=== PATIENT | female | born 1975 | race Caucasian/White ===

== ENCOUNTER 2017-11-20 19:33 | Emergency (ER) | payer OTHER ==
[~2017-11-20] VITALS: Ht 162.6 cm; Wt 106.6 kg
[~2017-11-20 19:33] MED LIST: ACETAMINOPHEN-1 EAC1 PO; AMOXICILLIN 50500 MG PO; AUGMENTIN 875875 MG PO; BLOOD PRESSURE MED; CEPHALEXIN 500500 M3 PO; CYCLOBENZAPRINE10 MG PO; DEPAKOTE ER500 MG PO; FLEXERIL PO; HYDROCHLOROTHIA25 M2 PO; HYDROCODON-ACE1 EAC7 PO; HYDROCODON-ACE1 EAC8 PO; IBUPROFEN 400400 M1 PO; IBUPROFEN 800800 MG PO; LEVOTHYROXINE0.2 M1 PO; LISINOPRIL-HCT1 EACH PO; LISINOPRIL40 MG PO; MEDROLDOSEPACK PO; MOBIC7.5 MG PO; NAPROSYN500 MG PO; NORCO 5-325 TA1 EAC1 PO; NORCO 5-325 TA1 EACH PO; NORFLEX100 MG PO; PERCOCET 7.5-31 EACH PO; PROMETH-CODEIN 65 ML PO; PROMETHAZINE D480 ML PO; ROBAXIN500 MG PO; SYNTHROID175 MCG PO; TESSALON PERLE100 MG PO; ULTRAM 50MG TAB50 MG PO; VALIUM5 MG PO; VALSARTAN-HCTZ1 EAC2 PO; VICOPROFEN 2001 EAC1 PO; ZOFRAN ODT4 MG PO
[2017-11-20] MEDS ORDERED: TIROSINT112 MCG (20:05)
[2017-11-20] MEDS ORDERED: IBUPROFEN 800800 M1 PO (21:47)
[2017-11-20] MEDS ORDERED: HYDROCODONE-AP1 EAC6 PO (21:47)
[2017-11-20 22:06] VITALS: BP 132/80
== END 2017-11-20 22:07 | disposition home or self-care (01) ==
LOC: M.ERS 19:33
DX: M25.562 Pain in left knee (principal); I10 Essential (primary) hypertension; E03.9 Hypothyroidism, unspecified; Z86.73 Personal history of transient ischemic attack (TIA), and cerebral infarction without residual deficits; Z90.710 Acquired absence of both cervix and uterus; Z98.890 Other specified postprocedural states; Z88.1 Allergy status to other antibiotic agents

== ENCOUNTER 2018-01-11 12:26 | Emergency (ER) | payer OTHER ==
[~2018-01-11] VITALS: Ht 165.1 cm; Wt 108.9 kg
[~2018-01-11 12:26] MED LIST changes: +HYDROCODONE-AP1 EAC6 PO; +IBUPROFEN 800800 M1 PO; +TIROSINT112 MCG
[2018-01-11 12:57] LABS: ABSOLUTE BASOPHILS 0.1 thou/uL (0.0-0.2); ABSOLUTE EOSINOPHILS 0.1 thou/uL (0.0-0.7); ABSOLUTE LYMPHOCYTES 1.8 thou/uL (0.8-5.3); ABSOLUTE MONOCYTES 0.4 thou/uL (0.0-1.2); ABSOLUTE NEUTROPHILS 8.5 thou/uL (1.6-8.1); BASOPHILS 0.6 %; EOSINOPHILS 1.2 %; HEMATOCRIT 40.6 % (37.0-47.0); HEMOGLOBIN 13.6 gm/dL (12.0-15.0); LYMPHOCYTES 16.7 %; MCH 30.8 pg (26.0-34.0); MCHC 33.6 g/dL (28.0-37.0); MCV 91.7 fL (80.0-100.0); MONOCYTES 3.9 %; MPV 8.7 fl. (7.2-11.1); NUCLEATED RBCS 0 /100WBC; PLATELET COUNT* 335 thou/uL (150-400); POLYS 77.6 %; RBC 4.43 mil/uL (4.20-5.00); RDW-CV 13.6 % (10.5-14.5)
[2018-01-11 13:06] LABS: ANION GAP 10 mmol/L (7-16); BUN 15 mg/dL (7-18); CALCIUM 9.9 mg/dL (8.5-10.1); CHLORIDE 99 mmol/L (98-107); CO2 29 mmol/L (21-32); CREATININE 0.8 mg/dL (0.6-1.3); GLUCOSE 93 mg/dL (70-99); POTASSIUM 3.9 mmol/L (3.5-5.1); SODIUM 138 mmol/L (136-145)
[2018-01-11 13:13] LABS: ALBUMIN 3.9 g/dL (3.4-5.0); ALKALINE PHOSPHATASE 73 U/L (46-116); LIPASE 96 U/L (73-393); MAGNESIUM 2.1 mg/dL (1.8-2.4); SGOT 18 U/L (15-37); SGPT 21 U/L (30-65); TOTAL BILIRUBIN 0.4 mg/dL (<0.1-1.0); TOTAL PROTEIN 8.3 g/dL (6.4-8.2); TROPONIN-I LEVEL <0.06 ng/mL (<0.06)
[2018-01-11] MEDS ORDERED: AUGMENTIN 875-1 EACH PO (13:35)
[2018-01-11] MEDS ORDERED: NORCO 5-325 TA1 EACH PO (13:41)
[2018-01-11 13:46] VITALS: BP 138/89
--- NOTE | 2018-01-11 16:40 | EKG ---
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: ANGEL : 1975 Requested By: Dmitriy Bernal Order Number: [id number] MD: Khang Sparks Measurements Intervals [place] Rate: 87 P: 8 MO: 156 QRS: -1 QRSD: 87 T: 13 QT: 387 QTc: 466 Interpretive Statements Sinus rhythm Low voltage, precordial leads Borderline T abnormalities, anterior leads Compared to ECG 02/29/2016 15:27:18 Low QRS voltage now present T-wave abnormality still present Electronically Signed On 01-11-2018 16:40:07 CDT by Khang Sparks [email or web address] <ELECTRONICALLY SIGNED> By: Khang Sparks MD, [facility] 01/11/18 1640 1232 1232 Khang Sparks MD, [facility] /EPI
== END 2018-01-11 13:47 | disposition home or self-care (01) ==
LOC: M.ERS 12:26
PROVIDERS: Emergency Medicine Emergency Medical Services
DX: H66.91 Otitis media, unspecified, right ear (principal); R09.1 Pleurisy; R07.9 Chest pain, unspecified; I10 Essential (primary) hypertension; E03.9 Hypothyroidism, unspecified; Z86.73 Personal history of transient ischemic attack (TIA), and cerebral infarction without residual deficits; Z87.442 Personal history of urinary calculi; Z88.1 Allergy status to other antibiotic agents

== ENCOUNTER 2018-03-21 14:18 | Emergency (ER) | payer OTHER ==
[~2018-03-21] VITALS: Ht 165.1 cm; Wt 111.1 kg
[~2018-03-21 14:18] MED LIST changes: +AUGMENTIN 875-1 EACH PO
[2018-03-21] MEDS ORDERED: MOBIC7.5 MG PO (14:55)
[2018-03-21 15:07] VITALS: BP 126/72
== END 2018-03-21 15:08 | disposition home or self-care (01) ==
LOC: M.ERS 14:18
DX: M25.562 Pain in left knee (principal); E03.9 Hypothyroidism, unspecified; I10 Essential (primary) hypertension; Z86.73 Personal history of transient ischemic attack (TIA), and cerebral infarction without residual deficits; Z87.442 Personal history of urinary calculi; Z88.1 Allergy status to other antibiotic agents

== ENCOUNTER 2018-04-15 13:27 | Emergency (ER) | payer OTHER ==
[~2018-04-15] VITALS: Ht 165.1 cm; Wt 108.9 kg
[2018-04-15] MEDS ORDERED: NORCO 5-325 TA1 EACH PO (14:27)
[2018-04-15 14:41] VITALS: BP 127/77
[2018-04-15] MEDS ORDERED: FLEXERIL PO (14:42)
== END 2018-04-15 14:41 | disposition home or self-care (01) ==
LOC: M.ERS 13:27
DX: M25.561 Pain in right knee (principal); I10 Essential (primary) hypertension; E03.9 Hypothyroidism, unspecified; Z86.73 Personal history of transient ischemic attack (TIA), and cerebral infarction without residual deficits; Z90.49 Acquired absence of other specified parts of digestive tract; Z87.442 Personal history of urinary calculi; Z90.710 Acquired absence of both cervix and uterus; Z88.1 Allergy status to other antibiotic agents

== ENCOUNTER 2018-05-23 21:26 | Emergency (ER) | payer OTHER ==
[~2018-05-23] VITALS: Ht 165.1 cm; Wt 106.6 kg
[2018-05-23] MEDS ORDERED: CANDESARTAN-HC1 EACH (21:38)
[2018-05-23] MEDS ORDERED: [UNRECOGNIZED DRUG - OTHER] (21:39)
[2018-05-23] MEDS ORDERED: MOBIC7.5 MG (21:39)
[2018-05-23 21:59] LABS: HEMATOCRIT 40.6 % (37.0-47.0); HEMOGLOBIN 13.4 gm/dL (12.0-15.0); MCH 30.6 pg (26.0-34.0); MCHC 33.1 g/dL (28.0-37.0); MCV 92.6 fL (80.0-100.0); MPV 8.4 fl. (7.2-11.1); NUCLEATED RBCS 0 /100WBC; PLATELET COUNT* 411 thou/uL (150-400); RBC 4.39 mil/uL (4.20-5.00); WBC 14.6 thou/uL (4.0-11.0)
[2018-05-23 22:08] LABS: ANION GAP 9 mmol/L (7-16); BUN 15 mg/dL (7-18); CALCIUM 9.2 mg/dL (8.5-10.1); CHLORIDE 98 mmol/L (98-107); CO2 29 mmol/L (21-32); CREATININE 0.8 mg/dL (0.6-1.3); GLUCOSE 109 mg/dL (70-99); POTASSIUM 3.2 mmol/L (3.5-5.1); SODIUM 136 mmol/L (136-145)
[2018-05-23 22:14] LABS: ALBUMIN 3.8 g/dL (3.4-5.0); ALKALINE PHOSPHATASE 96 U/L (46-116); LIPASE 100 U/L (73-393); SGOT 16 U/L (15-37); SGPT 20 U/L (30-65); TOTAL BILIRUBIN 0.4 mg/dL (<0.1-1.0); TOTAL PROTEIN 8.5 g/dL (6.4-8.2); TROPONIN-I LEVEL <0.06 ng/mL (<0.06)
[2018-05-23 22:23] LABS: ABSOLUTE EOSINOPHILS 0.1 thou/uL (0.0-0.7); ABSOLUTE LYMPHOCYTES 1.8 thou/uL (0.8-5.3); ABSOLUTE MONOCYTES 0.3 thou/uL (0.0-1.2); ABSOLUTE NEUTROPHILS 12.4 thou/uL (1.6-8.1); PLATELET ESTIMATE INCREASED
[2018-05-23 23:31] LABS: URINE BILIRUBIN NEGATIVE (Negative); URINE BLOOD 1+ (Negative); URINE CLARITY CLEAR; URINE COLOR YELLOW; URINE GLUCOSE-RANDOM NEGATIVE (Negative); URINE KETONES TRACE (Negative); URINE LEUKOCYTES NEGATIVE (Negative); URINE NITRITE NEGATIVE (Negative); URINE PROTEIN NEGATIVE (Negative); URINE SPECIFIC GRAVITY <= 1.005 (1.005-1.030); URINE UROBILINOGEN 0.2 E.U./dl (0.2-1.0)
[2018-05-23 23:38] LABS: BACTERIA 1-9 Few /HPF (None Seen); CASTS None Seen /LPF (None Seen); CRYSTALS None Seen /LPF (None Seen); MUCUS 0-3 Light strn/LPF (None Seen); SQUAMOUS 0-3 Few /LPF (0-3); URINE RBC 3-10 Few /HPF (0-2); URINE WBC None Seen /HPF (0-5)
[2018-05-24] MEDS ORDERED: NORCO 5-325 TA1 EACH PO (00:08)
[2018-05-24] MEDS ORDERED: CARAFATE1 GM/10 ML PO (00:08)
[2018-05-24] MEDS ORDERED: PROTONIX40 M1 PO (00:08)
[2018-05-24] MEDS ORDERED: ONDANSETRON HCL4 M2 PO (00:08)
[2018-05-24] MEDS ORDERED: KEFLEX500 M1 PO (00:12)
[2018-05-24 00:57] VITALS: BP 131/68
--- NOTE | 2018-05-24 16:24 | EKG ---
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: JAYNE : 1975 Requested By: Zehra Steele Order Number: [id number] MD: Khang Sparks Measurements Intervals [place] Rate: 124 P: 4 [place]: 160 QRS: -4 QRSD: 85 T: -11 QT: 316 QTc: 454 Interpretive Statements Sinus tachycardia Inferior infarct, old Probable anterior infarct, age indeterminate Compared to ECG 01/11/2018 12:32:38 Myocardial infarct finding now present Sinus rate has increased T-wave abnormality no longer present Electronically Signed On 05-24-2018 16:24:29 CDT by Khang Sparks [email or web address] <ELECTRONICALLY SIGNED> By: Khang Sparks MD, [facility] 05/24/18 1624 2227 2227 Khang Sparks MD, [facility] /EPI
== END 2018-05-24 00:59 | disposition home or self-care (01) ==
LOC: M.ERS 21:26
PROVIDERS: Nurse Practitioner Family
DX: E87.6 Hypokalemia (principal); N39.0 Urinary tract infection, site not specified; R10.13 Epigastric pain; I10 Essential (primary) hypertension; Z88.0 Allergy status to penicillin

== ENCOUNTER 2018-05-27 13:19 | Emergency (ER) | payer OTHER ==
[~2018-05-27] VITALS: Ht 165.1 cm; Wt 108.9 kg
[~2018-05-27 13:19] MED LIST changes: +CANDESARTAN-HC1 EACH; +CARAFATE1 GM/10 ML PO; +KEFLEX500 M1 PO; +MOBIC7.5 MG; +ONDANSETRON HCL4 M2 PO; +PROTONIX40 M1 PO; +[UNRECOGNIZED DRUG - OTHER]
[2018-05-27 13:56] LABS: HEMATOCRIT 35.3 % (37.0-47.0); HEMOGLOBIN 11.8 gm/dL (12.0-15.0); MCH 30.5 pg (26.0-34.0); MCHC 33.6 g/dL (28.0-37.0); MPV 8.9 fl. (7.2-11.1); NUCLEATED RBCS 0 /100WBC; PLATELET COUNT* 284 thou/uL (150-400); RBC 3.87 mil/uL (4.20-5.00); WBC 8.5 thou/uL (4.0-11.0)
[2018-05-27 14:02] LABS: ANION GAP 12 mmol/L (7-16); BUN 10 mg/dL (7-18); CALCIUM 8.1 mg/dL (8.5-10.1); CHLORIDE 98 mmol/L (98-107); CO2 26 mmol/L (21-32); CREATININE 0.8 mg/dL (0.6-1.3); GLUCOSE 145 mg/dL (70-99); POTASSIUM 3.1 mmol/L (3.5-5.1); SODIUM 136 mmol/L (136-145)
[2018-05-27 14:04] LABS: APTT 27.4 Seconds (25.0-31.3); PROTIME 10.3 Seconds (9.20-11.50)
[2018-05-27 14:21] LABS: ALBUMIN 2.8 g/dL (3.4-5.0); ALKALINE PHOSPHATASE 110 U/L (46-116); CK-MB MASS < 0.5 ng/mL (<0.5-3.6); LIPASE 102 U/L (73-393); MAGNESIUM 1.7 mg/dL (1.8-2.4); NT-PRO BRAIN NAT PEPTIDE 613 pg/mL (<300); SGOT 39 U/L (15-37); SGPT 36 U/L (30-65); TOTAL BILIRUBIN 0.8 mg/dL (<0.1-1.0); TOTAL PROTEIN 7.2 g/dL (6.4-8.2); TROPONIN-I LEVEL <0.06 ng/mL (<0.06)
[2018-05-27 15:01] LABS: ABSOLUTE LYMPHOCYTES 0.4 thou/uL (0.8-5.3); ABSOLUTE MONOCYTES 0.1 thou/uL (0.0-1.2)
[2018-05-27 15:02] VITALS: BP 116/68
[2018-05-27 15:02] LABS: PLATELET ESTIMATE ADEQUATE
[2018-05-27 15:05] LABS: URINE BLOOD 1+ (Negative); URINE CLARITY CLEAR; URINE COLOR YELLOW; URINE GLUCOSE-RANDOM NEGATIVE (Negative); URINE KETONES 2+ (Negative); URINE LEUKOCYTES-REFLEX NEGATIVE (Negative); URINE NITRITE-REFLEX NEGATIVE (Negative); URINE PROTEIN TRACE (Negative); URINE SPECIFIC GRAVITY 1.025 (1.005-1.030); URINE UROBILINOGEN 0.2 E.U./dl (0.2-1.0)
[2018-05-27 15:07] LABS: ICTOTEST (BILI CONFIRMATORY) Negative (Negative); URINE BILIRUBIN 2+ (Negative)
[2018-05-27 15:14] LABS: BACTERIA-REFLEX 1-9 Few /HPF (None Seen); HYALINE CASTS 0-3 Few /LPF (None Seen); MUCUS 4-6 Moderate strn/LPF (None Seen); SQUAMOUS >10 Many /LPF (0-3)
[2018-05-27 15:15] LABS: CRYSTALS None Seen /LPF (None Seen); URINE RBC 0-2 Rare /HPF (0-2); URINE WBC-REFLEX 0-5 Rare /HPF (0-5)
--- NOTE | 2018-05-28 11:01 | EKG ---
[place] [address] ELECTROCARDIOGRAM REPORT Name: BRYNNCATHERINE GEORGE Room: [facility]#: [id number] Admission: 05/27/18 Attend Phys: Discharge: 05/27/18 Date of : 75 Report #: [id number] THIS REPORT FOR: //name// [facility] ED Test Date: 2018-05-27 Test Time: 13:22:17 Pat Name: CATHERINE SWAIN Department: Room: Gender: F Barn Manager: Mariajose CALDERÓN : 1975 Requested By: Temo Moran Order Number: [id number] MD: Gustavo Andre Measurements Intervals [place] Rate: 118 P: 9 OK: 153 QRS: -20 QRSD: 75 T: 39 QT: 285 QTc: 400 Interpretive Statements Sinus tachycardia Probable left atrial enlargement Inferior infarct, old Compared to ECG 05/23/2018 22:27:18 No significant changes Electronically Signed On 05-28-2018 11:01:15 CDT by Gustavo Andre [email or web address] <ELECTRONICALLY SIGNED> By: Gustavo Andre MD, [facility] 05/28/18 1101 1322 1322 Gustavo Andre MD, [facility] /EPI
== END 2018-05-27 15:03 | disposition home or self-care (01) ==
LOC: M.ERS 13:19
PROVIDERS: Family Medicine
DX: R07.89 Other chest pain (principal); I10 Essential (primary) hypertension; Z88.1 Allergy status to other antibiotic agents

== ENCOUNTER → 2018-08-21 | Outpatient (CLI) | payer OTHER ==
--- NOTE | 2018-08-21 15:06 | 2DMMODE ---
[place] [address] 2 D/M-MODE ECHOCARDIOGRAM Name: CATHERINE SWAIN Room: [facility]#: [id number] Admission: 08/21/18 Attend Phys: Gustavo Ty, Discharge: Date of : 75 Date of Service: 08/21/18 1506 Report #: [id number] THIS REPORT FOR: //name// APPROVED REPORT Study performed: 08/21/2018 13:10:14 EXAM: Comprehensive 2D, Doppler, and color-flow Echocardiogram Patient Location: Out-Patient Status: routine BSA: 2.16 HR: 74 bpm BP: 127/82 mmHg Other Information Study Quality: Good Indications Murmur 2D Dimensions IVSd: 11.77 (7-11mm) LVOT Diam: 20.76 (18-24mm) LVDd: 47.72 mm PWd: 11.01 (7-11mm) Ascending Ao: 33.98 (22-36mm) LVDs: 28.06 (25-40mm) Aortic Root: 29.81 mm Volumes Left Atrial Volume (Systole) LA ESV Index: 16.20 mL/m2 Aortic Valve AoV Peak Noah.: 1.53 m/s AO Peak Gr.: 9.34 mmHg LVOT Max P.07 mmHg AO Mean Gr.: 5.40 mmHg LVOT Mean P.02 mmHg LVOT Max V: 1.01 m/s AO V2 VTI: 31.17 cm LVOT Mean V: 0.65 m/s GHAZAL (VTI): 2.37 cm2 LVOT V1 VTI: 21.81 cm Mitral Valve E/A Ratio: 0.92 MV Decel. Time: 281.78 ms MV E Max Noah.: 0.66 m/s MV PHT: 81.72 [place] [address] 2 D/M-MODE ECHOCARDIOGRAM Name: RICKEY SWAINJeferson VAZQUEZ Room: [facility]#: [id number] Admission: 08/21/18 Attend Phys: Gustavo Ty, Discharge: Date of : 75 Date of Service: 08/21/18 1506 Report #: [id number] MVA (PHT): 2.69 cm2 TDI E/Lateral E': 5.50 E/Medial E': 7.33 Medial E' Noah.: 0.09 m/s Lateral E' Noah.: 0.12 m/s Pulmonary Valve PV Peak Noah.: 1.02 m/s PV Peak Gr.: 4.17 mmHg Tricuspid Valve RAP Estimate: 5.00 mmHg TR Peak Gr.: 18.72 mmHg RVSP: 23.72 mmHg PA Pressure: 23.72 mmHg Left Ventricle The left ventricle is normal size. There is normal LV segmental wall motion. There is normal left ventricular wall thickness. Left ventricular systolic function is normal. LVEF is 55-60%. The left ventricular diastolic function is normal. Right Ventricle The right ventricle is normal size. The right ventricular systolic function is normal. Atria The left atrium size is normal. The right atrium size is normal. Aortic Valve The aortic valve is normal in structure. No aortic regurgitation is present. There is no aortic valvular stenosis. Mitral Valve The mitral valve is normal in structure. There is no mitral valve regurgitation noted. No evidence of mitral valve stenosis. Tricuspid Valve The tricuspid valve is normal in structure. Mild tricuspid regurgitation. Pulmonic Valve The pulmonary valve is normal in structure. There is no pulmonic valvular regurgitation. [place] [address] 2 D/M-MODE ECHOCARDIOGRAM Name: CATHERINE SWAIN Room: [facility]#: [id number] Admission: 08/21/18 Attend Phys: Gustavo Ty, Discharge: Date of : 75 Date of Service: 08/21/18 1506 Report #: [id number] The aortic root is normal in size. IVC is normal in size and collapses >50% with inspiration. Pericardium There is no pericardial effusion. <Conclusion> The left ventricle is normal size. There is normal left ventricular wall thickness. Left ventricular systolic function is normal. LVEF is 55-60%. IVC is normal in size and collapses >50% with inspiration. <ELECTRONICALLY SIGNED> By: Mathew Pina MD, FACC 08/21/18 1506 1506 1506 Mathew Pina MD, FACC /INF
== END ==
LOC: M.CRD 13:00
DX: I07.1 Rheumatic tricuspid insufficiency (principal); G43.A0 Cyclical vomiting, in migraine, not intractable

== ENCOUNTER → 2018-09-25 | Outpatient (CLI) | payer OTHER | LOC: M.ULTRA 13:04 | DX: R11.2 Nausea with vomiting, unspecified (principal) ==

== ENCOUNTER → 2019-02-26 | Outpatient (CLI) | payer OTHER | LOC: M.CT 15:00 | DX: K57.30 Diverticulosis of large intestine without perforation or abscess without bleeding (principal); R31.9 Hematuria, unspecified; R51 Headache; R11.0 Nausea ==

== ENCOUNTER 2019-04-01 08:08 | Emergency (ER) | payer OTHER ==
[~2019-04-01] VITALS: Ht 165.1 cm; Wt 113.4 kg
[2019-04-01] MEDS ORDERED: HTN MED (08:19)
[2019-04-01] MEDS ORDERED: NORCO 5-325 TA1 EAC1 PO (08:35)
[2019-04-01 08:56] VITALS: BP 158/84
== END 2019-04-01 08:58 | disposition home or self-care (01) ==
LOC: M.ERS 08:08
DX: S83.92XA Sprain of unspecified site of left knee, initial encounter (principal); I10 Essential (primary) hypertension; Z90.710 Acquired absence of both cervix and uterus; E03.9 Hypothyroidism, unspecified; Z88.1 Allergy status to other antibiotic agents; X58.XXXA Exposure to other specified factors, initial encounter; Y93.89 Activity, other specified; Y92.89 Other specified places as the place of occurrence of the external cause; Y99.8 Other external cause status

== ENCOUNTER → 2019-09-27 | Outpatient (CLI) | payer OTHER ==
[~2019-09-27] MED LIST changes: +COZAAR 25 MG TA25 M1 PO; +HTN MED
== END ==
LOC: M.ULTRA 07:35
DX: I10 Essential (primary) hypertension (principal); G43.009 Migraine without aura, not intractable, without status migrainosus; E03.9 Hypothyroidism, unspecified; Z90.49 Acquired absence of other specified parts of digestive tract

== ENCOUNTER 2019-10-02 12:52 | Inpatient (IN) | payer OTHER ==
[~2019-10-02] VITALS: Ht 165.1 cm; Wt 109.3 kg
--- NOTE | ~2019-10-02 | PROC ---
[facility] [address] [place] [address] PROCEDURE REPORT Name: CATHERINE SWAIN Room: [address] IN M.R.#: [id number] Admission: 10/02/19 Attend Phys: Sharan Lobato Discharge: Date of : 75 Report #: [id number] THIS REPORT FOR: //name// For GI report, please see the Provation report in Perceptive 7 content. By: 0638Medical Records Staff JENIFER /RIZWANA
--- NOTE | ~2019-10-02 | CON ---
[address] [address] CONSULTATION Name: BRYNNCATHERINE VAZQUEZ Room: [address] ADM IN M.R.#: [id number] Admission: 10/02/19 Attend Phys: Sharan Lobato Discharge: Date of : 75 Report #: [id number] THIS REPORT FOR: //name// CC: Gustavo Navarro DICTATED BY: Sylvia LAWRENCEP DATE OF SERVICE: 10/04/2019 Please note at the time of this dictation, the patient was seen and physically examined by myself. REASON FOR CONSULTATION: Nausea, vomiting and diarrhea with some abdominal pain. HISTORY OF PRESENT ILLNESS: This is a 44-year-old female who presented to the Emergency Room with her symptoms started on Monday with nausea, vomiting and diarrhea, epigastric pain that started in the middle and radiated over into the right side. She thought she just might have had the GI flu normally. Her bowels move once every other day, but they had increased in frequency and she was going 4-6 times a day. No bright red blood or any black melanotic stool noted. She was having issues with nausea and vomiting. Again no bright red blood or any coffee ground emesis. She does have some occasional GERD in which she will take some Tums and has noticed a little bit of worsening of that here recently. The patient did have her gallbladder taken out back in April of this year. She has also been having issues with her blood pressure and trying to get that under control as well. She really has not had any eating or drinking much since prior to Monday because of her issues. ALLERGIES: AZITHROMYCIN. MEDICATIONS FROM HOME: Include Cozaar and levothyroxine. PAST MEDICAL HISTORY: Hypertension, hypothyroidism, occasional heartburn, history of kidney stones, seizure, history of CVA and headaches. PAST SURGICAL HISTORY: Benign masses removed from chest, cholecystectomy, appendectomy, hysterectomy and 3 knee surgeries. FAMILY HISTORY: Noncontributory. SOCIAL HISTORY: Denies any alcohol, tobacco or illegal drug use. REVIEW OF SYSTEMS: Twelve-point review of [place] [address] CONSULTATION Name: CATHERINE SWAIN Room: [address] IN [facility]#: [id number] Admission: 10/02/19 Attend Phys: Sharan Lobato Discharge: Date of : 75 Report #: [id number] except what is mentioned in the HPI. PHYSICAL EXAMINATION: VITAL SIGNS: Temperature 36.7, pulse 58, respirations 16, blood pressure 97/62. HEART: Regular rate and rhythm. LUNGS: Clear. ABDOMEN: Soft, positive bowel sounds in all 4 quadrants with epigastric to right upper quadrant tenderness noted to palpation. LABORATORY DATA: Hemoglobin 11.1, white count is 7.4, platelets 313. GFR 68. LFTs are normal. Potassium is 3.2. CT showed hepatic abscess in the right lobe with some soft tissue stranding measuring 4.5 x 2.6 x 2.2. IMPRESSION: 1. Nausea and vomiting. 2. Abdominal pain. 3. Diarrhea. 4. Hepatic abscess. PLAN: 1. EGD today with Dr. Alvarado. 2. Possible IR intervention to drain her abscess later today. 3. Further recommendations to be done after the procedure has been performed. Thank you for allowing us to participate in this patient's care. Please do not hesitate to call with any questions in regard to this consult. By: 1219 1310Alyssa Alvarado MD /nt
[~2019-10-02 12:52] MED LIST changes: -COZAAR 25 MG TA25 M1 PO; -TIROSINT112 MCG; +TIROSINT112 MCG PO
[2019-10-02 13:06] VITALS: BP 140/86
[2019-10-02] MEDS ORDERED: COZAAR 25 MG TA25 M1 PO (13:09)
[2019-10-02 13:31] LABS: ABSOLUTE BASOPHILS 0.1 thou/uL (0.0-0.2); ABSOLUTE EOSINOPHILS 0.1 thou/uL (0.0-0.7); ABSOLUTE LYMPHOCYTES 2.2 thou/uL (0.8-5.3); ABSOLUTE MONOCYTES 0.5 thou/uL (0.0-1.2); BASOPHILS 1.1 %; EOSINOPHILS 0.6 %; HEMATOCRIT 43.6 % (37.0-47.0); LYMPHOCYTES 18.4 %; MCH 29.9 pg (26.0-34.0); MCHC 34.5 g/dL (28.0-37.0); MCV 86.7 fL (80.0-100.0); MONOCYTES 4.2 %; MPV 8.9 fl. (7.2-11.1); NUCLEATED RBCS 0 /100WBC; PLATELET COUNT* 480 thou/uL (150-400); POLYS 75.7 %; RBC 5.03 mil/uL (4.20-5.00); RDW-CV 14.4 % (10.5-14.5); WBC 11.9 thou/uL (4.0-11.0)
[2019-10-02 13:40] LABS: CALCIUM 9.5 mg/dL (8.5-10.1); CREATININE 1.2 mg/dL (0.6-1.3)
[2019-10-02 13:44] LABS: ALBUMIN 4.1 g/dL (3.4-5.0); POTASSIUM 2.5 mmol/L (3.5-5.1); TOTAL BILIRUBIN 0.7 mg/dL (<0.1-1.0); TOTAL PROTEIN 9.2 g/dL (6.4-8.2)
[2019-10-02 14:31] LABS: URINE BLOOD 1+ (Negative); URINE CLARITY CLEAR; URINE COLOR YELLOW; URINE GLUCOSE-RANDOM NEGATIVE (Negative); URINE KETONES NEGATIVE (Negative); URINE LEUKOCYTES-REFLEX NEGATIVE (Negative); URINE NITRITE-REFLEX NEGATIVE (Negative); URINE PROTEIN NEGATIVE (Negative); URINE SPECIFIC GRAVITY >= 1.030 (1.005-1.030); URINE UROBILINOGEN 0.2 E.U./dl (0.2-1.0)
[2019-10-02 14:33] LABS: ICTOTEST (BILI CONFIRMATORY) Positive (Negative); URINE BILIRUBIN 2+ (Negative)
[2019-10-02 14:50] LABS: HYALINE CASTS >10 Many /LPF (None Seen); MUCUS 0-3 Light strn/LPF (None Seen); SQUAMOUS 4-10 Moderate /LPF (0-3)
[2019-10-02 14:51] LABS: BACTERIA-REFLEX 1-9 Few /HPF (None Seen); URINE WBC-REFLEX 6-15 Few /HPF (0-5)
[2019-10-02 14:52] LABS: CRYSTALS None Seen /LPF (None Seen); URINE RBC 0-2 Rare /HPF (0-2)
[2019-10-02 17:32] VITALS: BP 129/95
[2019-10-02 18:17] VITALS: BP 126/80
--- NOTE | 2019-10-02 18:42 | NUR ---
2466 PATIENT ADMITTED FROM ER TO ROOM 117 ACCOMPANIED BY FRIEND. PLEASE SEE ADMISSION ASSESSMENT AND HISTORY. PT IS HUNGRY. GIVEN ICE CHIPS ONLY. INSTRUCTED ON POSSIBLE IR PROCEDURE TOMORROW.
[2019-10-02 20:45] VITALS: BP 122/83
[2019-10-03 04:00] LABS: ABSOLUTE BASOPHILS 0.1 thou/uL (0.0-0.2); ABSOLUTE EOSINOPHILS 0.1 thou/uL (0.0-0.7); ABSOLUTE LYMPHOCYTES 2.2 thou/uL (0.8-5.3); ABSOLUTE MONOCYTES 0.5 thou/uL (0.0-1.2); ABSOLUTE NEUTROPHILS 6.7 thou/uL (1.6-8.1); BASOPHILS 1.2 %; EOSINOPHILS 1.3 %; HEMATOCRIT 35.8 % (37.0-47.0); LYMPHOCYTES 22.6 %; MCH 30.1 pg (26.0-34.0); MCHC 34.6 g/dL (28.0-37.0); MCV 87.2 fL (80.0-100.0); MONOCYTES 4.9 %; MPV 8.9 fl. (7.2-11.1); NUCLEATED RBCS 0 /100WBC; RDW-CV 14.3 % (10.5-14.5); WBC 9.6 thou/uL (4.0-11.0)
[2019-10-03 04:17] LABS: HEMOGLOBIN 12.4 gm/dL (12.0-15.0); PLATELET COUNT* 366 thou/uL (150-400)
[2019-10-03 04:23] LABS: ALBUMIN 3.1 g/dL (3.4-5.0); CREATININE 1.1 mg/dL (0.6-1.3); TOTAL BILIRUBIN 0.6 mg/dL (<0.1-1.0)
[2019-10-03 04:24] LABS: POTASSIUM 2.4 mmol/L (3.5-5.1)
--- NOTE | 2019-10-03 04:57 | NUR ---
PATIENT HAS REMAINED ALERT AND ORIENTED X 4 THROUGHOUT THE SHIFT AND RESTING QUIETLY ON HOURLY ROUNDS. MEDICATED X 2 FOR PAIN AND NAUSEA TO GOOD EFFECT. NPO AT MIDNIGHT FOR IR CONSULT TODAY. IVF'S AND ANTIBIOTICS PROVIDED PER ORDER. K+ CRITICAL THIS AM. DR. NICK ANDERSON NOTIFIED WITH ELECTROLYTE REPLACEMENT PROTOCOL ORDERED. WILL PROVIDE. VITAL SIGNS STABLE. URINE SAMPLE FOR URINE CULTURE TO LAB THIS SHIFT. CONTINUE TO MONITOR.
[2019-10-03 08:30] VITALS: BP 130/86
[2019-10-03 10:31] LABS: POTASSIUM 2.8 mmol/L (3.5-5.1)
[2019-10-03 10:47] LABS: PROTIME 10.2 Seconds (9.20-11.50)
[2019-10-03 16:00] VITALS: BP 132/91
--- NOTE | 2019-10-03 16:32 | NUR ---
PATIENT ALERT AND ORIENTED X 4. VITAL SIGNS STABLE ON ROOM AIR. UP INDEPENDENTLY IN ROOM. IV PATENT AND FLUIDS INFUSING. POTASSIUM REPLACED PER ELECTROLYTE PROTOCOL. PAIN AND NAUSEA BEING MANAGED WITH IV MEDICATION. PATIENT HAS LACK OF APPETITE TODAY. WILL BE NPO AFTER MIDNIGHT TONIGHT. HOURLY ROUNDS MAINTAINED THROUGHOUT THE SHIFT. CALL LIGHT WITHIN REACH. [facility]
[2019-10-03 20:00] VITALS: BP 110/64
[2019-10-04 04:39] LABS: ABSOLUTE BASOPHILS 0.1 thou/uL (0.0-0.2); ABSOLUTE EOSINOPHILS 0.2 thou/uL (0.0-0.7); ABSOLUTE LYMPHOCYTES 1.9 thou/uL (0.8-5.3); ABSOLUTE MONOCYTES 0.4 thou/uL (0.0-1.2); ABSOLUTE NEUTROPHILS 4.9 thou/uL (1.6-8.1); BASOPHILS 0.8 %; EOSINOPHILS 2.2 %; HEMATOCRIT 32.3 % (37.0-47.0); HEMOGLOBIN 11.1 gm/dL (12.0-15.0); LYMPHOCYTES 25.5 %; MCH 30.2 pg (26.0-34.0); MCHC 34.5 g/dL (28.0-37.0); MCV 87.7 fL (80.0-100.0); MONOCYTES 5.7 %; MPV 8.7 fl. (7.2-11.1); NUCLEATED RBCS 0 /100WBC; PLATELET COUNT* 313 thou/uL (150-400); POLYS 65.8 %; RBC 3.68 mil/uL (4.20-5.00); RDW-CV 14.4 % (10.5-14.5); WBC 7.4 thou/uL (4.0-11.0)
[2019-10-04 04:47] LABS: ALBUMIN 2.8 g/dL (3.4-5.0); CREATININE 0.9 mg/dL (0.6-1.3); MAGNESIUM 1.7 mg/dL (1.8-2.4); PHOSPHORUS* 2.2 mg/dL (2.5-4.9); TOTAL BILIRUBIN 0.2 mg/dL (<0.1-1.0); TOTAL PROTEIN 6.3 g/dL (6.4-8.2)
[2019-10-04 04:48] LABS: POTASSIUM 2.9 mmol/L (3.5-5.1)
--- NOTE | 2019-10-04 06:27 | NUR ---
Alert and oriented x 4. She is up independently in the room to the bathroom. Laste evening she was finishing up her last dose of IV potassium,it was painful infusing to her. Shehas an IV to left upper arm that flushes well and has good blood return. One more dose of K+ given orally at bedtime. She did have pain and nausea meds x 2 this shift. This am her potassium was critical again at 2.9. Message sent to Dr Laguerre and I did explain that she was already on the electrolyte protocol. This am I did give K+40meq orally and mag ox 800mg with a sip of water. She has not had anything orally since midnight besides the meds. Will continue to monitor.
[2019-10-04 07:30] VITALS: BP 97/62
--- NOTE | 2019-10-04 09:48 | NUR ---
Nutrition: pt screen for BMI >40. Pt NPO, plan for abcess drainage. C/o nausea, admit with gastroenteritis, mild SIRS. 4-5 loose stools yesterday. K+ 2.2, PO4- 2.2, albumin 2.8. Meds rweviewed. No significant wt loss per hx, however, those appear to be stated wt's. Assess at mild nutrition risk at this time, no current recommendations.
[2019-10-04 11:17] LABS: CALCIUM 8.6 mg/dL (8.5-10.1); CREATININE 0.9 mg/dL (0.6-1.3); POTASSIUM 3.2 mmol/L (3.5-5.1)
--- NOTE | 2019-10-04 11:59 | CON ---
[address] [address] CONSULTATION Name: BRYNNCATHERINEJeferson VAZQUEZ Room: [address] ADM IN .R.#: [id number] Admission: 10/02/19 Attend Phys: Sharan Lobato Discharge: Date of : 75 Report #: [id number] THIS REPORT FOR: //name// CC: Gustavo Navarro DATE OF SERVICE: 10/04/2019 INFECTIOUS DISEASE CONSULTATION ATTENDING PHYSICIAN: Dr. Milner REASON FOR EVALUATION: Intra-abdominal abscess. HISTORY OF PRESENT ILLNESS: Chart reviewed and the patient examined. This is a 44-year-old woman with recent cholecystectomy in latter part of April, presented to the Emergency Room with nausea, emesis, diarrhea, and epigastric abdominal pain. She does admit to some chills and sweats. It is not clear to her if she has had fevers. She had some periodic anorexia, avoidance of certain foods, and felt to be initially dehydrated. She had evaluation including imaging of the abdomen and pelvis, which showed ill-defined bilobed low density in inferior medial margin of the right lobe of the liver, inflammatory mass, and possible abscess. Urinalysis did show some pyuria as well. Blood cultures are sterile thus far. She was empirically started on piperacillin and tazobactam pending percutaneous approach for possible aspiration of the mass this afternoon. She is lucid. Denies any significant pulmonary-related complaints. She does have some persistent nausea and recent emesis. ALLERGIES: AZITHROMYCIN WHICH CAUSES URTICARIA. MEDICATIONS: Include losartan, levothyroxine, Zosyn, p.r.n. analgesics and antiemetics. PAST MEDICAL AND SURGICAL HISTORY: Hypothyroidism, history of reflux, hypertension, seizure, previous stroke, renal lithiasis, cholecystectomy, appendectomy, knee surgery, hysterectomy, and tubal ligation. SOCIAL HISTORY: Nonsmoker. Occasional ethanol. No illicit drug use. FAMILY HISTORY: Noncontributory. REVIEW OF SYSTEMS: Otherwise, unremarkable 10-point review of systems with exception of the above. PHYSICAL EXAMINATION: GENERAL: She is alert, cooperative, [place]. [place] [address] CONSULTATION Name: CATHERINE SWAIN Room: [address] IN [facility]#: [id number] Admission: 10/02/19 Attend Phys: Sharan Lobato Discharge: Date of : 75 Report #: [id number] distress secondary to abdominal related nausea. She appears reasonably well nourished. VITAL SIGNS: Temperature 98.1, pulse 58, respirations 16, and blood pressure 97/62. SKIN: Warm and dry. No rashes. HEENT: Normocephalic. Extraocular muscles intact. NECK: Supple. LUNGS: Clear to auscultation. HEART: Regular. Borderline bradycardic. I do not appreciate a murmur. ABDOMEN: Slightly distended and somewhat tender in the right upper quadrant. There are no peritoneal signs. GENITOURINARY AND RECTAL: Deferred. LABORATORY DATA: Blood cultures are sterile thus far. Electrolytes from this morning; sodium 144, potassium 2.9, chloride 106, bicarbonate is 33, anion gap of 5, BUN and creatinine of 11 and 0.9, and glucose of 93. LFTs unremarkable. Albumin of 2.8, total protein 6.3, and estimated GFR of 68. CBC: White count 7.4, H and H of 11.1 and 32.3, and platelets of 313. Differential unremarkable. Lactic acid initially at 1.7. CT abdomen and pelvis as described above. ASSESSMENT AND PLAN: Inflammatory intra-abdominal mass, suspected abscess. We will continue empiric antimicrobial therapy. Zosyn should give us reasonable coverage. We may need to add antifungal to see how she does clinically. This should hopefully be both therapeutic as well as diagnostic percutaneous drainage approach. We will add incentive spirometer. <ELECTRONICALLY SIGNED> By: Jarred Seth MD 10/04/19 1159 0929 1029Jolupe Seth MD /nt
--- NOTE | 2019-10-04 12:15 | NUR ---
PT.ALERT AND ORIENTED. WAITING ON PROCEDURES. SHE SAID SHE IS NORMALLY INDEPENDENT. HER DAUGHTERS LIVE WITH HER AND ARE SUPPORTIVE. 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 SHE DOES NOT FEEL SHE WILL HAVE ANY DISCHARGE NEEDS.
[2019-10-04 12:28] VITALS: BP 97/62
--- NOTE | 2019-10-04 13:07 | EKG ---
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: : 1975 Requested By: Sylvia Hammond Order Number: [id number] MD: Khang Sparks Measurements Intervals [place] Rate: 51 P: 10 [place]: 162 QRS: -12 QRSD: 87 T: 18 QT: 472 QTc: 435 Interpretive Statements Sinus rhythm Inferior infarct, old Compared to ECG 05/27/2018 13:22:17 Sinus tachycardia no longer present Myocardial infarct finding still present Electronically Signed On 10-04-2019 13:06:41 POWER PLANT ENGINEER by Khang Sparks [email or web address] <ELECTRONICALLY SIGNED> By: Khang Sparks MD, [facility] 10/04/19 1306 1251 1251 Khang Sparks MD, [facility] /EPI
[2019-10-04 16:00] VITALS: BP 109/62
--- NOTE | 2019-10-04 17:06 | NUR ---
PT REMAINED ALERT AND ORIENTED. POTASSIUM REPLACED ORDERED. PT UNABLE TO GET IR PROCEDURE COMPLETED. PHYSICIAN NOTIFIED. PT WAS UPSET, PT REQUESTED AN ADVOCATE, FABRICATION MACHINE OPERATOR NOTIFIED. PHYSICIAN CAME TO TALK WITH PATIENT TO ANSWER THEIR QUESTIONS. HOURLY ROUNDING COMPLETED. FALL RISK PRECAUTIONS IN PLACE. HOURLY ROUNDING COMPLETED. WILL CONTINUE TO MONITOR.
[2019-10-04 21:00] VITALS: BP 97/53
[2019-10-04 23:52] VITALS: BP 70/40
[2019-10-05] VITALS (9 sets, daily range): BP systolic 90–130; BP diastolic 36–82
[2019-10-05 04:19] LABS: HEMATOCRIT 31.8 % (37.0-47.0); HEMOGLOBIN 10.9 gm/dL (12.0-15.0); MCH 30.5 pg (26.0-34.0); MCHC 34.4 g/dL (28.0-37.0); MCV 88.7 fL (80.0-100.0); MPV 8.5 fl. (7.2-11.1); RBC 3.58 mil/uL (4.20-5.00); RDW-CV 14.7 % (10.5-14.5); WBC 6.9 thou/uL (4.0-11.0)
[2019-10-05 04:38] LABS: ALBUMIN 2.8 g/dL (3.4-5.0); CALCIUM 7.8 mg/dL (8.5-10.1); CREATININE 0.9 mg/dL (0.6-1.3); MAGNESIUM 1.9 mg/dL (1.8-2.4); POTASSIUM 3.4 mmol/L (3.5-5.1); TOTAL BILIRUBIN 0.3 mg/dL (<0.1-1.0); TOTAL PROTEIN 6.2 g/dL (6.4-8.2)
--- NOTE | 2019-10-05 05:43 | NUR ---
MEDS GIVEN ORDERED. VSS ON RA, EXCEPT LOW BP. DR NOTIFIED, NO ORDER RECEIVED. CT SCAN DONE AROUND MIDNIGHT. FENTANYL, ZOFRAN GIVEN X 2 THIS SHIFT PER PT REQUEST. IV FLUID RUNNING ORDERED. POTASSIUM REPLACED PER PROTOCOL. WILL CONTINUE TO MONITOR.
[2019-10-05 14:53] LABS: URINE BILIRUBIN NEGATIVE (Negative); URINE BLOOD NEGATIVE (Negative); URINE CLARITY CLEAR; URINE COLOR YELLOW; URINE GLUCOSE-RANDOM NEGATIVE (Negative); URINE KETONES NEGATIVE (Negative); URINE LEUKOCYTES-REFLEX NEGATIVE (Negative); URINE NITRITE-REFLEX NEGATIVE (Negative); URINE PROTEIN NEGATIVE (Negative); URINE SPECIFIC GRAVITY 1.015 (1.005-1.030); URINE UROBILINOGEN 0.2 E.U./dl (0.2-1.0)
--- NOTE | 2019-10-05 18:37 | NUR ---
PT A&Ox4. VITALS STABLE. IV PATENT. UP AD DRAGAN. PAIN CONTROLLED PARTIALLY WITH FENTANYL. NAUSEA CONTROLLED WITH ZOFRAN. CALL LIGHT WITHIN REACH. WILL CONTINUE TO MONITOR.
--- NOTE | 2019-10-05 23:28 | NUR ---
PATIENT REPORTING UNCONTROLLED/SEVERE BILAT KIDNEY PAIN. SPOKE TO DR. AVELAR AT 2325 TO UPDATE ON PATIENT STATUS, INCLUDING RECENT CT AND LAB RESULTS AND PROCEDURE PERFOMED TODAY. NEW ORDER RECEIVED.
--- NOTE | 2019-10-06 04:48 | NUR ---
PATIENT HAS REMAINED ALERT AND ORIENTED X 4 THROUGHOUT THE SHIFT. REST MUCH IMPROVED WITH CHANGE IN PAIN MEDICATION. UP SBA/INDEPENDENT TO BR. IVF'S AND ANTIBIOTICS PER ORDER. VITAL SIGNS STABLE ON ROOM AIR. NO EMESIS. MEDICATED FOR NAUSEA X 2 FOR SHIFT. CONTINUE TO MONITOR.
[2019-10-06 04:49] LABS: HEMATOCRIT 32.8 % (37.0-47.0); HEMOGLOBIN 11.2 gm/dL (12.0-15.0); MCH 30.2 pg (26.0-34.0); MCV 88.8 fL (80.0-100.0); MPV 8.9 fl. (7.2-11.1); RBC 3.69 mil/uL (4.20-5.00); RDW-CV 14.7 % (10.5-14.5); WBC 6.6 thou/uL (4.0-11.0)
[2019-10-06 05:02] LABS: CREATININE 0.9 mg/dL (0.6-1.3); MAGNESIUM 1.8 mg/dL (1.8-2.4); POTASSIUM 3.3 mmol/L (3.5-5.1)
[2019-10-06 09:30] VITALS: BP 107/68
[2019-10-06 16:00] VITALS: BP 112/63
--- NOTE | 2019-10-06 18:15 | NUR ---
PT A&Ox4. UP AD DRAGAN. VITALS STABLE. IV PATENT, SL. PAIN PARTIALLY CONTROLLED WITH NORCO, TAMADOL AND FLEXERIL. HEATING PAD APPLIED. CALL LIGHT WITHIN REACH. WILL CONTINUE TO MONITOR.
[2019-10-06 20:30] VITALS: BP 99/55
[2019-10-07 04:01] LABS: MAGNESIUM 1.8 mg/dL (1.8-2.4)
--- NOTE | 2019-10-07 04:36 | NUR ---
PATIENT HAS REMAINED ALERT AND ORIENTED X 4 THROUGHOUT THE SHIFT AND RESTING QUIETLY ON HOURLY ROUNDS. IMPROVEMENT IN PAIN CONTROL RELATED TO BACK WITH ONE DOSE HYDROCODONE, ONE DOSE FLEXERIL AND SCHEDULED TRAMADOL. TOLERATED CHICKEN NOODLE SOUP AT HS WITHOUT PRN ZOFRAN. NO EMESIS. ABDOMINAL PAIN STILL PRESENT BUT HAS BEEN MINAMAL CAMPARED TO BACK. MAGNESIUM AND POTASSIUM REPLACEMENT OVER LAST 24 HOURS. RECHECK THIS AM MAGNESIUM STILL 1.8. WILL REPEAT REPLACEMENT PER PROTOCOL. POTASSIUM WITHIN NORMAL LIMITS. VITAL SIGNS STABLE. ANTIBIOTICS PER ORDER. PATIENT REPORTS 3 LOOSE BM'S LAST 24 HOURS. CONTINUE TO MONITOR.
[2019-10-07 07:56] VITALS: BP 114/73
[2019-10-07 08:45] LABS: HEMATOCRIT 30.6 % (37.0-47.0); HEMOGLOBIN 10.6 gm/dL (12.0-15.0); MCH 30.6 pg (26.0-34.0); MCHC 34.5 g/dL (28.0-37.0); MCV 88.7 fL (80.0-100.0); MPV 8.5 fl. (7.2-11.1); RBC 3.45 mil/uL (4.20-5.00); RDW-CV 14.5 % (10.5-14.5); WBC 6.8 thou/uL (4.0-11.0)
[2019-10-07 08:54] LABS: CALCIUM 8.2 mg/dL (8.5-10.1); CREATININE 0.9 mg/dL (0.6-1.3); POTASSIUM 3.8 mmol/L (3.5-5.1)
[2019-10-07 16:19] VITALS: BP 132/81
--- NOTE | 2019-10-07 18:17 | NUR ---
PT A&Ox4. VITALS STABLE. IV PATENT. TOLERATING DIET. UP AD DRAGAN. PAIN CONTROLLED. NAUSEA CONTROLLED. CALL LIGHT WITHIN REACH. WILL CONTINUE TO MONITOR.
[2019-10-07 20:00] VITALS: BP 123/75
[2019-10-08 04:20] LABS: HEMATOCRIT 31.9 % (37.0-47.0); HEMOGLOBIN 10.8 gm/dL (12.0-15.0); MCH 30.3 pg (26.0-34.0); MCHC 33.8 g/dL (28.0-37.0); MCV 89.6 fL (80.0-100.0); MPV 9.3 fl. (7.2-11.1); RBC 3.55 mil/uL (4.20-5.00); RDW-CV 14.8 % (10.5-14.5); WBC 7.6 thou/uL (4.0-11.0)
--- NOTE | 2019-10-08 04:39 | NUR ---
PATIENT REMAINS ALERT AND ORIENTED X 4 THROUGHOUT THE SHIFT AND RESTING QUIETLY ON HOURLY ROUNDS. UP INDEPENDENTLY IN THE ROOM. STATED TOLERATED A GRILLED CHEESE SANDWICH AT SUPPER YESTERDAY. HAS HAD AT LEAST ONE DIARRHEA STOOL PATIENT DESCRIBES WATERY THIS SHIFT AND 3 YESTERDAY. IV ANTIBIOTICS PER ORDER. VITAL SIGNS STABLE. AFEBRILE. ADEQUATE PAIN CONTROL WITH SCHEDULED MEDS THIS SHIFT. CONTINUE TO MONITOR.
[2019-10-08 04:41] LABS: ALBUMIN 2.8 g/dL (3.4-5.0); MAGNESIUM 1.9 mg/dL (1.8-2.4); POTASSIUM 3.3 mmol/L (3.5-5.1); TOTAL BILIRUBIN 0.3 mg/dL (<0.1-1.0); TOTAL PROTEIN 6.3 g/dL (6.4-8.2)
[2019-10-08 09:07] VITALS: BP 107/68
--- NOTE | 2019-10-08 15:42 | NUR ---
PT PROGRESSING TOWARDS GOALS THIS SHIFT. PRN HYDROCODONE GIVEN X1 THIS SHIFT WITH PRN FLEXERIL FOR PAIN MANAGEMENT. VSS. PT REPORTS HAVING LOOSE STOOLS THIS SHIFT. NONE OBSERVED BY THIS RN. NO OTHER CONCERNS AT THIS TIME. CLWR. WCTM.
[2019-10-08 16:00] VITALS: BP 136/60
--- NOTE | 2019-10-08 16:37 | 2DMMODE ---
[place] [address] 2 D/M-MODE ECHOCARDIOGRAM Name: SWAINCATHERINEJeferson SERRANOE Room: [address] IN [facility]#: [id number] Admission: 10/02/19 Attend Phys: Lewis Navarro Discharge: Date of : 75 Date of Service: 10/08/19 1636 Report #: [id number] THIS REPORT FOR: //name// APPROVED REPORT Study performed: 10/08/2019 10:56:56 EXAM: Comprehensive 2D, Doppler, and color-flow Echocardiogram Patient Location: In-Patient Room #: [facility] Status: routine BSA: 2.14 HR: 55 bpm BP: 107/68 mmHg Rhythm: NSR Other Information Study Quality: Good Indications rule out vegetation 2D Dimensions IVSd: 8.23 (7-11mm) LVOT Diam: 20.77 (18-24mm) LVDd: 49.27 mm PWd: 7.53 (7-11mm) Ascending Ao: 36.29 (22-36mm) LVDs: 30.14 (25-40mm) Aortic Root: 30.12 mm Volumes Left Atrial Volume (Systole) LA ESV Index: 30.80 mL/m2 Aortic Valve AoV Peak Noah.: 1.30 m/s AO Peak Gr.: 6.75 mmHg LVOT Max P.26 mmHg AO Mean Gr.: 3.79 mmHg LVOT Mean P.94 mmHg LVOT Max V: 1.03 m/s AO V2 VTI: 26.99 cm LVOT Mean V: 0.63 m/s GHAZAL (VTI): 2.91 cm2 LVOT V1 VTI: 23.17 cm Mitral Valve E/A Ratio: 1.45 MV Decel. Time: 221.70 ms MV E Max Noah.: 1.08 m/[place] [address] 2 D/M-MODE ECHOCARDIOGRAM Name: SWAINCATHERINE Room: [address] IN [facility]#: [id number] Admission: 10/02/19 Attend Phys: Lewis Navarro Discharge: Date of : 75 Date of Service: 10/08/19 1636 Report #: [id number] MV PHT: 64.29 ms MVA (PHT): 3.42 cm2 TDI E/Lateral E': 8.31 E/Medial E': 7.71 Medial E' Noah.: 0.14 m/s Lateral E' Noah.: 0.13 m/s Pulmonary Valve PV Peak Noah.: 1.02 m/s PV Peak Gr.: 4.19 mmHg Tricuspid Valve RAP Estimate: 5.00 mmHg TR Peak Gr.: 31.06 mmHg RVSP: 36.00 mmHg PA Pressure: 36.00 mmHg Left Ventricle The left ventricle is normal size. There is normal LV segmental wall motion. There is normal left ventricular wall thickness. Left ventricular systolic function is normal. LVEF is 60-65%. The left ventricular diastolic function is normal. Right Ventricle The right ventricle is normal size. The right ventricular systolic function is normal. Atria Left atrium is mildly dilated. Right atrium is mildly dilated. Aortic Valve The aortic valve is normal in structure. No aortic regurgitation is present. There is no aortic valvular stenosis. Mitral Valve The mitral valve is normal in structure. Mild mitral regurgitation. No evidence of mitral valve stenosis. Tricuspid Valve The tricuspid valve is normal in structure. Mild tricuspid regurgitation. The RVSP is 35-40 mmHg. Pulmonic Valve Pulmonic valve is grossly normal in structure. [place] [address] 2 D/M-MODE ECHOCARDIOGRAM Name: CATHERINE SWAIN Room: [address] IN [facility]#: [id number] Admission: 10/02/19 Attend Phys: Lewis Navarro Discharge: Date of : 75 Date of Service: 10/08/19 1636 Report #: [id number] Great Vessels The aortic root is normal in size. IVC is normal in size and collapses >50% with inspiration. Pericardium There is no pericardial effusion. <Conclusion> The left ventricle is normal size. There is normal left ventricular wall thickness. Left ventricular systolic function is normal. LVEF is 60-65%. The left ventricular diastolic function is normal. Left atrium is mildly dilated. Right atrium is mildly dilated. Mild mitral regurgitation. Mild tricuspid regurgitation. The RVSP is 35-40 mmHg. <ELECTRONICALLY SIGNED> By: Mathew Pina MD, FACC 10/08/19 1636 1636 1636 Mathew Pina MD, FACC /INF
[2019-10-08 20:12] VITALS: BP 119/67
[2019-10-08 22:46] VITALS: BP 119/67
--- NOTE | 2019-10-09 05:40 | NUR ---
REPORTED PAIN AT BEGINNING OF SHIFT, GAVE PAIN MEDS. RECEIVED ABX SCHEDULED. NO REPORTS OF WORSENING PAIN OR NAUSEA. NO REPORTS OF DIARRHEA. UP AD DRAGAN PLAN FOR MORE ABX. WILL CONTINUE TO FOLLOW PLAN OF CARE.
--- NOTE | 2019-10-09 09:09 | PATH ---
[facility] [address] [place] [address] PATHOLOGY RPT PROCEDURE Name: EUNICE SWAIN Room: [address] IN [facility]#: [id number] Admission: 10/02/19 Date of : 75 Discharge: Report #: [id number] Path Case #: [id number] [facility] Accession Number: [id number] . 01 Material submitted: . gastrointestinal site - GASTRIC BIOPSIES FOR GASTRITIS . 01 Clinical history: . Gastritis . 02 Diagnosis: Gastric biopsies (for gastritis): - Moderate nonspecific chronic gastritis, negative for Helicobacter pylori organisms and dysplasia. (HIPOLITO:jadiel; 10/08/2019) . Special stain: H. pylori immuno MBR 10/08/2019 1017 Local . 02 Electronically signed: . Herrera Latham MD, Pathologist NPI- [id number] . 01 Gross description: . The specimen is received in formalin, labeled "Eunice Swain, gastric biopsies for gastritis". Received are three segments of pale jurado soft tissue ranging in size from 0.5 to 0.6 cm in maximum dimensions. The specimen is submitted entirely in cassette A1. (CAA; 10/07/2019) QAC/QAC 10/07/2019 1145 Local . 02 Pathologist provided ICD-10: K29.50 . 02 CPT . 022786, E26381 Specimen Comment: A courtesy copy of this report has been sent to [phone] Specimen Comment: Report sent to Specimen Comment: A duplicate report has been generated due to demographic updates. Performed at: [address] [facility] [address], [place], [place] [id number] MD Franko Alex MD Phone: [phone] Performed at: [address] [facility] [address] [address] [place], [place] [id number] MD Herrera Latham MD Phone: [phone]
[2019-10-09 09:16] VITALS: BP 116/76
[2019-10-09] MEDS ORDERED: AUGMENTIN 875-1 EACH PO (15:00)
[2019-10-09] MEDS ORDERED: HYDROCODON-ACE1 EAC7 PO (15:00)
[2019-10-09] MEDS ORDERED: PANTOPRAZOLE SO40 M1 PO (15:00)
[2019-10-09] MEDS ORDERED: ZOFRAN ODT4 MG PO (15:00)
[2019-10-09] MEDS ORDERED: TRAMADOL 50 MG50 MG PO ×2 (15:00→15:26)
[2019-10-09] MEDS ORDERED: TRANSDERM-SCOP1 EACH TRANSDERM (15:00)
[2019-10-09 15:15] VITALS: BP 116/76
[2019-10-09] MEDS ORDERED: NORCO 5-325 TA1 EAC1 PO (15:28)
--- NOTE | 2019-10-09 16:03 | NUR ---
PT ASKING FOR DISABILITY PAPERWORK FOR FMLA TO BE FILLED OUT BUT DOES NOT HAVE PAPERWORK WITH HER. SHE STATES SHE REQUESTED FOR HER JOB TO FAX PAPERWORK TO [facility]. ENCOURAGED PT TO F/U WITH DR YEPEZ OFFICE OR PCP TOMORROW TO HAVE PAPERWORK FILLED OUT
--- NOTE | 2019-10-09 16:25 | NUR ---
PT DISCHARGED TO HOME AT 1611 WITH NURSING STAFF AND FRIEND. IV OUT. PAIN AND NAUSEA CONTROLLED. WORK RELEASE SENT WITH PT. PAPER SCRIPTS SENT WITH PT. PERSONAL BELONGINGS SENT WITH PT.
[2019-10-10] MEDS ORDERED: NORCO 5-325 TA1 EAC1 PO (09:39)
[2019-10-10] MEDS ORDERED: TRAMADOL 50 MG50 MG PO (09:39)
== END 2019-10-09 16:26 | disposition home or self-care (01) | DRG 371 ==
LOC: M.ERS 12:52 → M.ORTHSURG 15:16 → M.TBA-ER 15:16 → M.ORTHSURG 17:52
PROVIDERS: Internal Medicine; Physician Assistant; Radiology Diagnostic Radiology; Surgery; ADMIT Internal Medicine
PROC: 0DB68ZX Excision of Stomach, Via Natural or Artificial Opening Endoscopic, Diagnostic (ICD-10-PCS; principal; 2019-10-04)
PROC: 0F913ZZ Drainage of Right Lobe Liver, Percutaneous Approach (ICD-10-PCS; principal; 2019-10-04)
DX: A04.9 Bacterial intestinal infection, unspecified (principal); K75.0 Abscess of liver; R65.10 Systemic inflammatory response syndrome (SIRS) of non-infectious origin without acute organ dysfunction; E44.1 Mild protein-calorie malnutrition; Z68.41 Body mass index [BMI] 40.0-44.9, adult; A08.4 Viral intestinal infection, unspecified; K29.70 Gastritis, unspecified, without bleeding; K21.9 Gastro-esophageal reflux disease without esophagitis; I10 Essential (primary) hypertension; E87.6 Hypokalemia; D72.829 Elevated white blood cell count, unspecified; E03.9 Hypothyroidism, unspecified; B96.89 Other specified bacterial agents as the cause of diseases classified elsewhere; Z28.21 Immunization not carried out because of patient refusal; Z90.49 Acquired absence of other specified parts of digestive tract; Z88.1 Allergy status to other antibiotic agents; Z90.710 Acquired absence of both cervix and uterus; Z86.73 Personal history of transient ischemic attack (TIA), and cerebral infarction without residual deficits; Z72.89 Other problems related to lifestyle; Z79.899 Other long term (current) drug therapy; Z80.3 Family history of malignant neoplasm of breast; Z82.49 Family history of ischemic heart disease and other diseases of the circulatory system; Z87.442 Personal history of urinary calculi

== ENCOUNTER → 2020-06-02 | Outpatient (CLI) | payer OTHER ==
[~2020-06-02] MED LIST changes: +COZAAR 25 MG TA25 M1 PO; +PANTOPRAZOLE SO40 M1 PO; +TRAMADOL 50 MG50 MG PO; +TRANSDERM-SCOP1 EACH TRANSDERM
== END ==
LOC: M.ULTRA 05-21 16:07
PROVIDERS: ATTEND Registered Nurse Diabetes Educator
DX: K75.0 Abscess of liver (principal); E03.9 Hypothyroidism, unspecified

== ENCOUNTER 2021-03-12 10:48 | Emergency (ER) | payer OTHER ==
[~2021-03-12] VITALS: Ht 165.1 cm; Wt 108.9 kg
[2021-03-12 10:57] VITALS: BP 173/105
[2021-03-12] MEDS ORDERED: CEPHALEXIN500 MG PO (11:07)
== END 2021-03-12 11:25 | disposition home or self-care (01) ==
LOC: M.ERS 10:48
DX: S70.362A Insect bite (nonvenomous), left thigh, initial encounter (principal); L08.9 Local infection of the skin and subcutaneous tissue, unspecified; I10 Essential (primary) hypertension; Z98.51 Tubal ligation status; Z90.710 Acquired absence of both cervix and uterus; Z86.73 Personal history of transient ischemic attack (TIA), and cerebral infarction without residual deficits; Z90.49 Acquired absence of other specified parts of digestive tract; Z87.442 Personal history of urinary calculi; Z88.1 Allergy status to other antibiotic agents; Z88.5 Allergy status to narcotic agent; W57.XXXA Bitten or stung by nonvenomous insect and other nonvenomous arthropods, initial encounter; Y93.89 Activity, other specified; Y92.89 Other specified places as the place of occurrence of the external cause; Y99.8 Other external cause status

== ENCOUNTER 2021-03-13 22:24 | Emergency (ER) | payer OTHER ==
[~2021-03-13] VITALS: Ht 165.1 cm; Wt 108.9 kg
[~2021-03-13 22:24] MED LIST changes: +CEPHALEXIN500 MG PO
[2021-03-14 01:56] LABS: ABSOLUTE EOSINOPHILS 0.2 thou/uL (0.0-0.7); ABSOLUTE LYMPHOCYTES 1.3 thou/uL (0.8-5.3); ABSOLUTE MONOCYTES 0.4 thou/uL (0.0-1.2); BASOPHILS 0.5 %; EOSINOPHILS 1.9 %; HEMATOCRIT 35.2 % (37.0-47.0); HEMOGLOBIN 12.2 gm/dL (12.0-15.0); MCH 32.2 pg (26.0-34.0); MCHC 34.6 g/dL (28.0-37.0); MCV 92.9 fL (80.0-100.0); MONOCYTES 5.6 %; NUCLEATED RBCS 0 /100WBC; PLATELET COUNT* 311 thou/uL (150-400); RBC 3.78 mil/uL (4.20-5.00); RDW-CV 13.8 % (10.5-14.5); WBC 7.9 thou/uL (4.0-11.0)
[2021-03-14 02:04] LABS: CALCIUM 8.5 mg/dL (8.5-10.1); CREATININE 0.9 mg/dL (0.6-1.3); POTASSIUM 3.5 mmol/L (3.5-5.1)
[2021-03-14] MEDS ORDERED: CLEOCIN HCL300 MG PO (02:33)
[2021-03-14] MEDS ORDERED: HYDROCODON-ACE1 EAC8 PO (02:33)
[2021-03-14 02:55] VITALS: BP 155/71
== END 2021-03-14 02:55 | disposition home or self-care (01) ==
LOC: M.ERS 22:24
PROVIDERS: Emergency Medicine
DX: L03.115 Cellulitis of right lower limb (principal); I10 Essential (primary) hypertension; Z88.1 Allergy status to other antibiotic agents; Z88.5 Allergy status to narcotic agent; Z79.899 Other long term (current) drug therapy; Z98.51 Tubal ligation status; Z90.710 Acquired absence of both cervix and uterus; Z86.73 Personal history of transient ischemic attack (TIA), and cerebral infarction without residual deficits; Z90.49 Acquired absence of other specified parts of digestive tract

== ENCOUNTER 2021-03-17 09:32 | Inpatient (IN) | payer OTHER ==
[~2021-03-17] VITALS: Ht 165.1 cm; Wt 108.9 kg
[~2021-03-17 09:32] MED LIST changes: +CLEOCIN HCL300 MG PO
[2021-03-17 09:36] VITALS: BP 148/98
[2021-03-17] MEDS ORDERED: TRAMADOL 50 MG50 MG PO (09:41)
[2021-03-17 10:59] LABS: ABSOLUTE BASOPHILS 0.1 thou/uL (0.0-0.2); ABSOLUTE EOSINOPHILS 0.2 thou/uL (0.0-0.7); ABSOLUTE LYMPHOCYTES 1.3 thou/uL (0.8-5.3); ABSOLUTE MONOCYTES 0.5 thou/uL (0.0-1.2); BASOPHILS 0.6 %; EOSINOPHILS 1.8 %; HEMATOCRIT 36.8 % (37.0-47.0); HEMOGLOBIN 12.6 gm/dL (12.0-15.0); MCH 31.8 pg (26.0-34.0); MCHC 34.3 g/dL (28.0-37.0); MCV 92.8 fL (80.0-100.0); MONOCYTES 4.3 %; MPV 7.9 fl. (7.2-11.1); NUCLEATED RBCS 0 /100WBC; PLATELET COUNT* 414 thou/uL (150-400); POLYS 82.3 %; RBC 3.96 mil/uL (4.20-5.00); WBC 12.1 thou/uL (4.0-11.0)
[2021-03-17 11:07] LABS: CALCIUM 9.1 mg/dL (8.5-10.1); CREATININE 0.8 mg/dL (0.6-1.3); POTASSIUM 4.1 mmol/L (3.5-5.1)
[2021-03-17 11:12] LABS: ALBUMIN 3.6 g/dL (3.4-5.0); TOTAL BILIRUBIN 0.3 mg/dL (<0.1-1.0); TOTAL PROTEIN 8.2 g/dL (6.4-8.2)
[2021-03-17 12:11] VITALS: BP 144/72
[2021-03-17 13:32] VITALS: BP 147/91
--- NOTE | 2021-03-17 13:34 | NUR ---
PT ADMITTED WITH SPIDER BITE. PICTURE TAKEN. PT ORIENTED TO ROOM. PAIN MEDS ADMINISTERED ORDERED. CALL LIGHT WITHIN REACH
[2021-03-17 15:45] VITALS: BP 122/73
--- NOTE | 2021-03-17 16:42 | NUR ---
PT REMAINED ALERT AND ORIENTED. PT RESTING IN BED. PT C/O PAIN, MEDS GIVEN ORDERED. WOUND PIC IN CHART. HOURLY ROUNDING COMPLETED. CALL LIGHT WITHIN REACH.
--- NOTE | 2021-03-17 19:31 | NUR ---
10 IV START ATTEMPTS BY ER AND [facility] STAFF NURSES. VANC DUE AT 1900. AT 1930 STILL WORKING ON OBTAINING ACCESS.
[2021-03-17 20:00] VITALS: BP 146/85
--- NOTE | 2021-03-17 20:36 | NUR ---
PAGED DR ORTIZ TO REQUEST A PICC PLACEMENT ORDER FOR THIS PATIENT
--- NOTE | 2021-03-18 03:11 | NUR ---
PT POLITELY REFUSING ANOTHER IV ATTEMPT. WILL PASS ALONG TO GET PICC LINE ORDERED ON DAY SHIFT.
--- NOTE | 2021-03-18 03:44 | NUR ---
PT HAS NO IV ACCESS, DR ORTIZ AWARE BY ComplyMDCALL MESSAGE, WILL REQUEST FOR PICC PLACEMENT WITH DAY SHIFT. SHE IS ALERT AND ORIENTED, ROOM AIR, UP AD DRAGAN. ICE PACK USED IN INNER LEFT THIGH TO NUMB. NORCO Q3 PRN FOR PAIN. SHE REPORTED A HEADACHE/MIGRAINE AT BEGINNING OF SHIFT. SHE SAYS IT FELT BETTER AFTER MIDNIGHT. SHE WAS ABLE TO SLEEP MOST OF THE NIGHT COMFORTABLY. VANC NOT GIVEN DUE TO LACK OF ACCESS. WILL CONSULT FOR IV PLACEMENT IN AM. AFTER 10 IV ATTEMPTS FROM MULTIPLE STAFF SHE POLIETLY DECLINED FURTHER STICKS.
[2021-03-18 05:37] LABS: HEMATOCRIT 35.4 % (37.0-47.0); HEMOGLOBIN 12.2 gm/dL (12.0-15.0); MCHC 34.5 g/dL (28.0-37.0); MCV 92.8 fL (80.0-100.0); MPV 7.8 fl. (7.2-11.1); RBC 3.81 mil/uL (4.20-5.00); WBC 12.3 thou/uL (4.0-11.0)
--- NOTE | 2021-03-18 05:37 | NUR ---
AT 0500 LAB MACHINE TOOL DESIGNER ATTEMPTED TO COLLECT BLOOD FOR ORDERS. SHE WAS UNABLE TO GET ANY RETURN FOR COLLECTION. THE ORDERS FOR COLLECTION FOR 7/1 AM DRAW ARE STILL UNFILLED AT THIS TIME. UNABLE TO COLLECT
[2021-03-18 05:50] LABS: ALBUMIN 3.2 g/dL (3.4-5.0); CALCIUM 8.7 mg/dL (8.5-10.1); CREATININE 0.8 mg/dL (0.6-1.3); MAGNESIUM 2.1 mg/dL (1.8-2.4); POTASSIUM 3.6 mmol/L (3.5-5.1); TOTAL BILIRUBIN 0.3 mg/dL (<0.1-1.0); TOTAL PROTEIN 7.1 g/dL (6.4-8.2)
[2021-03-18 07:35] VITALS: BP 144/101
--- NOTE | 2021-03-18 09:58 | NUR ---
PT INIDICATED SHE LIVES AT HOME WITH HER B/F. PT IS INDEPENDENT WITH CARES, ACTIVE AND EMPLOYEED FT. PT HAS NO DMES. PT HAS NO HX WITH SNF OR HH. THERE ARE NO ANTICIPATED CM NEEDS.
[2021-03-18 11:03] VITALS: BP 146/85
[2021-03-18 16:00] VITALS: BP 119/79
[2021-03-18 20:06] VITALS: BP 125/80
--- NOTE | 2021-03-18 20:18 | NUR ---
PATIENT RESTING IN BED. PATIENT IS UP AD DRAGAN IN ROOM. PATIENT HAS FAIR APPETITE. PATIENT HAS HAD COMPLAINTS OF PAIN TO LEFT LEG, TREATED ADEQUATELTY WITH MEDICAITON AND COLD. PATIENT HAD MIDLINE PLACED THIS AM BY PICC NURSE. PATIENT STARTED ON SCHEDULED IV ANTIBIOTICS. PATIENT DENIES ANY NEEDS AT THIS TIME. CALL LIGHT WITHI REACH.
[2021-03-19 04:23] LABS: HEMATOCRIT 32.1 % (37.0-47.0); HEMOGLOBIN 11.2 gm/dL (12.0-15.0); MCH 32.5 pg (26.0-34.0); MCHC 34.8 g/dL (28.0-37.0); MCV 93.3 fL (80.0-100.0); MPV 8.4 fl. (7.2-11.1); RBC 3.44 mil/uL (4.20-5.00); RDW-CV 13.6 % (10.5-14.5); WBC 10.6 thou/uL (4.0-11.0)
--- NOTE | 2021-03-19 04:28 | NUR ---
PT A&OX4, VSS ON ROOM AIR, PT UP AD DRAGAN, IV SALINE LOCKED. PRN PAIN MED REQUESTED AND GIVEN ORDERED. ICE PACKS PROVIDED. WILL CONTINUE TO MONITOR.
[2021-03-19 04:56] LABS: ALBUMIN 2.9 g/dL (3.4-5.0); CALCIUM 8.1 mg/dL (8.5-10.1); CREATININE 0.9 mg/dL (0.6-1.3); MAGNESIUM 2.1 mg/dL (1.8-2.4); POTASSIUM 3.6 mmol/L (3.5-5.1); TOTAL BILIRUBIN 0.2 mg/dL (<0.1-1.0)
[2021-03-19 07:55] VITALS: BP 135/88
[2021-03-19] MEDS ORDERED: DOXYCYCLINE 10100 M2 PO (09:22)
[2021-03-19] MEDS ORDERED: HYDROCODON-ACE1 EAC7 PO (09:22)
[2021-03-19] MEDS ORDERED: TRAMADOL 50 MG50 MG PO (09:22)
[2021-03-19] MEDS ORDERED: CEFDINIR300 MG PO (09:22)
[2021-03-19 12:11] VITALS: BP 146/85
--- NOTE | 2021-03-19 14:35 | NUR ---
PATIENT DISCHARGED TO HOME. DISCHARGE PAPERS REVIEWED AND SIGNED. PRESCRIPTIONS TRANSMITTED TO PHARMACY AND INFORMATION SHEETS GIVEN. IV REMOVED. PATIENT DENIES ANY FURTHER NEEDS. PATIENT TAKEN BY WHEELCHAIR TO EXIT. LEFT WITH SO.
[2021-03-19 14:47] VITALS: BP 146/85
== END 2021-03-19 14:35 | disposition home or self-care (01) | DRG 603 ==
LOC: M.ERS 09:32 → M.ORTHSURG 10:13 → M.TBA-ER 10:13 → M.ORTHSURG 12:24
PROVIDERS: Family Medicine; ADMIT Internal Medicine; ATTEND Internal Medicine
PROC: 05HF33Z Insertion of Infusion Device into Left Cephalic Vein, Percutaneous Approach (ICD-10-PCS; principal; 2021-03-18)
DX: L03.116 Cellulitis of left lower limb (principal); I10 Essential (primary) hypertension; T63.301A Toxic effect of unspecified spider venom, accidental (unintentional), initial encounter; Y92.89 Other specified places as the place of occurrence of the external cause; E03.9 Hypothyroidism, unspecified; Z20.822 Contact with and (suspected) exposure to COVID-19; Z90.710 Acquired absence of both cervix and uterus; Z86.73 Personal history of transient ischemic attack (TIA), and cerebral infarction without residual deficits; Z87.442 Personal history of urinary calculi; Z90.49 Acquired absence of other specified parts of digestive tract; Z88.6 Allergy status to analgesic agent; Z88.1 Allergy status to other antibiotic agents